=== PATIENT | female | born 1980 | race Caucasian/White ===

== ENCOUNTER 2024-03-20 18:17 | Emergency (ER) | payer BC ==
[~2024-03-20] VITALS: Ht 160 cm; Wt 65.8 kg
[2024-03-20 18:26] VITALS: BP 124/85; PULSE 89; RESP 16; TEMP 98.3; O2SAT 98
[2024-03-20] MEDS: KETOROLAC 30 MG/ML VIAL IVP ONE (18:52)
[2024-03-20] MEDS: NACL 0.9% 1,000 ML IV ONE (18:52)
[2024-03-20] MEDS: ONDANSETRON 4 MG/2 ML VIAL IVP ONE (18:53)
[2024-03-20 18:56] LABS: BASOPHILS % (AUTO) 0.4 % (0.0-2.0); EOSINOPHILS # (AUTO) 0.2 K/uL (0-0.4); EOSINOPHILS % (AUTO) 2.2 % (0.0-4.0); HEMOGLOBIN 13.5 g/dL (12.0-16.0); LYMPHOCYTES # (AUTO) 2.6 K/uL (2.5-16.5); LYMPHOCYTES % (AUTO) 23.2 % (20.5-51.1); MEAN CORPUSCULAR HEMOGLOBIN 31 pg (27-31); MEAN CORPUSCULAR HGB CONC 35 g/dL (33-37); MONOCYTES # (AUTO) 0.8 K/uL (0.8-1.0); MONOCYTES % (AUTO) 6.8 % (1.7-9.3); NEUTROPHILS # (AUTO) 7.5 K/uL (1.8-7.7); NEUTROPHILS % (AUTO) 67.4 % (42.2-75.2); PLATELET COUNT (AUTO) 289 K/uL (140-450); RED BLOOD CELL COUNT(AUTO) 4.43 MIL/uL (4.20-5.40); RED CELL DISTRIBUTION WIDTH 13.1 % (11.6-13.7); WHITE BLOOD COUNT (AUTO) 11.1 K/uL (4.8-10.8)
[2024-03-20 19:12] LABS: ANION GAP 13.1 (8-16); CALCIUM 8.2 mg/dL (8.5-10.1); CARBON DIOXIDE 26.3 mmol/L (21-32); CREATININE 0.9 mg/dL (0.6-1.3); POTASSIUM 3.4 mmol/L (3.5-5.1)
[2024-03-20 19:19] LABS: ALANINE AMINOTRANSFERASE 32 U/L (12-78); ALBUMIN 3.4 g/dL (3.4-5.0); ALKALINE PHOSPHATASE 75 U/L (50-136); ASPARTATE AMINOTRANSFERASE 23 U/L (15-37); BILIRUBIN,DIRECT 0.1 mg/dL (0.0-0.3); LIPASE 42 U/L (16-77); TOTAL BILIRUBIN 0.4 mg/dL (0.0-1.0); TOTAL PROTEIN, SERUM 7.5 g/dL (6.4-8.2)
[2024-03-20 19:59] LABS: APPEARANCE,URINE CLOUDY (CLEAR); BILIRUBIN,URINE 1+ (NEGATIVE); BLOOD, URINE 3+ (NEGATIVE); COLOR,URINE RED (YELLOW); LEUKOCYTE ESTERASE ,URINE 2+ (NEGATIVE); NITRITE, URINE POSITIVE (NEGATIVE); PH,URINE 7.5 (5.0-9.0); PROTEIN,URINE 3+ (NEGATIVE); UGLUCOSE NEGATIVE (NEGATIVE)
[2024-03-20 20:10] LABS: ICTOTEST NEGATIVE (NEGATIVE)
[2024-03-20 20:13] LABS: BACTERIA,URINE None Seen /HPF (None Seen); RBC,URINE TOO NUMEROUS TO COUN /HPF (0-5); SQUAMOUS EPITHELIAL CELL,UR 0-3 (FEW) /LPF (0-3 (FEW)); WBC,URINE 16-25 (MOD) /HPF (0-5)
[2024-03-20] MEDS: ACETAMINOPHEN 100 ML IV ONE (20:16)
[2024-03-20] MEDS ORDERED: MECLIZINE 25 MG TAB ONE (21:22)
[2024-03-20] MEDS: MECLIZINE 25 MG TAB PO ONE (21:23)
[2024-03-20 22:00] VITALS: BP 134/67; PULSE 93; RESP 19; O2SAT 97
== END 2024-03-20 22:00 | disposition home or self-care (01) ==
LOC: MED 18:17
DX: R55 Syncope and collapse (principal); R10.31 Right lower quadrant pain; Z79.899 Other long term (current) drug therapy
CPT/HCPCS: 36415; 76856; 80048; 80076; 81001; 81025; 83690; 84484; 85025; 85651; 86140; 87086; 93005; 93976; 96361; 96374; 96375; 99285; J1885; J2405; J7030; J8597; Q0092